=== PATIENT | female | born 1995 | race Caucasian/White ===

== ENCOUNTER 2019-03-10 04:47 | Day surgery (SDC) | payer OTHER ==
[2019-02-28 16:33] VITALS: BMI 26.7
[2019-03-10] MEDS ORDERED: LIDOCAINE HCL/PF 2% SDV 5ML VIAL ONE (14:37)
[2019-03-10] MEDS ORDERED: SUCCINYLCHOLINE CHLORIDE 200 MG/10 ML SYRINGE ONE (14:38)
[2019-03-10] MEDS ORDERED: PROPOFOL 20 ML ONE (14:38)
[2019-03-10] MEDS ORDERED: MIDAZOLAM HCL 2 MG/2 ML SINGLE DOSE VIAL ONE (14:38)
--- NOTE | 2019-03-10 14:38 | HP ---
History & Physical Update - History History: No Change - Physical Physical: No Change - Assessment Assessment: No Change - Plan Plan: No Change (Agree with H&P from 02/17/19, for laparoscopic left ovarian cystectomy for dermoid cyst)
[2019-03-10] MEDS ORDERED: ACETAMINOPHEN 325 MG TABLET (FP) PO PRN (14:43)
[2019-03-10] MEDS ORDERED: IBUPROFEN 800 MG/8 ML IJ IVPB PRN (14:43)
[2019-03-10] MEDS ORDERED: oxyCODONE HCL 5 MG TABLET PO PRN (14:44)
[2019-03-10] MEDS ORDERED: ONDANSETRON 4 MG/2 ML VIAL IVPUSH PRN (14:44)
[2019-03-10] MEDS ORDERED: LACTATED RINGERS SOLUTION 1,000 ML IV SCH (14:45)
[2019-03-10] MEDS ORDERED: DEXAMETHASONE SOD PHOSPHATE 4 MG/1 ML VIAL ONE (15:58)
[2019-03-10] MEDS ORDERED: KETOROLAC TROMETHAMINE 30 MG/1 ML VIAL ONE (16:31)
[2019-03-10] MEDS ORDERED: DESFLURANE GAS 240 ML BOTTLE IH ONE (16:39)
[2019-03-10] MEDS ORDERED: HYDROmorphone HCl 2 MG/ML VIAL ONE (16:54)
[2019-03-10] MEDS ORDERED: HYDROmorphone *PCA* 10MG/50ML DISP.SYRIN PCA ONE (17:45)
[2019-03-10] MEDS ORDERED: HYDROmorphone *PCA* 10MG/50ML DISP.SYRIN ONE (17:50)
--- NOTE | 2019-03-10 17:51 | OP ---
Operative Note - Note: Operative Date: 03/10/19 ([id number]) Pre-Operative Diagnosis: left ovarian dermoid cyst Operation: laparoscopic left ovarian cystectomy Findings: large left ovarian dermoid cyst Post-Operative Diagnosis: Same as Pre-op Surgeon: Roxi Smith Coding Auditor: June Dugan Anesthesiologist/FUEL OIL TRUCK DRIVER: Tian Corona Anesthesia: General Specimens Removed: left ovarian cyst Estimated Blood Loss (mls): 10 (small retroperitoneal hematoma noted not expanding after case) Operative Report Dictated: Yes
[2019-03-10] MEDS ORDERED: ACETAMINOPHEN 1000 MG/100 ML VIAL (NON FORMULARY) IVPB PRN (17:53)
[2019-03-10] MEDS ORDERED: HYDROmorphone *PCA* 10MG/50ML DISP.SYRIN PCA SCH (18:00)
--- NOTE | 2019-03-10 18:00 | SURG ---
Surgery Chest Painting And Sealing Supervisor Note Chest Painting And Sealing Supervisor: June Dugan PA-C (Suzy) Date of Service: 03/10/19 Diagnosis: left ovarian dermoid cyst Procedure: laparoscopic left ovarian cystectomy I was present for the entirety of the operative procedure. For further detail, please refer to operative report.
[2019-03-10] MEDS ORDERED: ONDANSETRON 4 MG/2 ML VIAL ONE ×2 (18:14→20:16)
[2019-03-10] MEDS ORDERED: ONDANSETRON 4 MG/2 ML VIAL IVPUSH ONE ×2 (18:15→19:45)
[2019-03-10] MEDS ORDERED: ACETAMINOPHEN 1000 MG/100 ML VIAL (NON FORMULARY) IVPB ONE (18:15)
[2019-03-10 18:36] LABS: BASO % 0.2 % (0-2.0); EOS % 0.2 % (0-4.5); HEMATOCRIT 34.5 % (32.4-45.2); HEMOGLOBIN 11.6 GM/dL (10.7-15.3); LYMPH % 13.2 % (8-40); MCH 29.7 pg (25.7-33.7); MCHC 33.7 g/dl (32.0-36.0); MEAN CELL VOLUME 88.2 fl (80-96); MEAN PLT VOLUME 8.8 fl (7.5-11.1); MONO % 3.1 % (3.8-10.2); NEUT % 83.3 % (42.8-82.8); PLATELET COUNT 126 K/MM3 (134-434); RBC 3.92 M/mm3 (3.60-5.2); RDW 13.9 % (11.6-15.6); WHITE BLOOD COUNT 6.9 K/mm3 (4.0-10.0)
[2019-03-10] MEDS ORDERED: PROMETHAZINE HCL 25 MG/1 ML VIAL IVPUSH ONE (20:00)
[2019-03-10] MEDS ORDERED: SODIUM CHLORIDE 500 ML IV STA (20:12)
[2019-03-10] MEDS ORDERED: PROMETHAZINE HCL 25 MG/1 ML VIAL ONE (20:28)
--- NOTE | 2019-03-10 20:35 | OP ---
DATE OF OPERATION: 03/10/2019 PREOPERATIVE DIAGNOSIS: Left ovarian dermoid cyst. POSTOPERATIVE DIAGNOSIS: Left ovarian dermoid cyst. PROCEDURE: Laparoscopic left ovarian cystectomy. SURGEON: Roxi Smith DO ANESTHESIA: General by PAPO Nguyen. SAMPLING THEORY TEACHER: NADEEM Taveras COMPLICATIONS: A retroperitoneal hematoma which was noted during the middle portion of the procedure. After several minutes of observation, did not appear to be expanding, required intraoperative consult with Vascular Surgery. ESTIMATED BLOOD LOSS: 10 mL. URINE OUTPUT: 200 mL. COUNT: Sponge, needle, and instrument count correct. DISPOSITION: Stable to PACU. BRIEF HISTORY AND PROCEDURE: Patient is a 23-year-old female who had a left ovarian dermoid cyst, who was admitted to [facility] on March 10, 2019, for laparoscopic removal. The patient signed the consents for the procedure prior to admission and reconfirmed upon admission. She was then taken back to the operating room, given general anesthesia, and placed in the dorsal lithotomy position. A 5-mm incision was created in the umbilicus, and a Veress needle was placed intra-abdominally. Abdomen was insufflated with CO2 gas. Next, a 5-mm trocar was placed, and using the optical trocar device, upon entry, it appeared that the trocar had been inserted briskly, and there was concern for trauma right below the trocar insertion site. The camera was inserted into the abdominal cavity, and a small area of peritoneal superficial tear was appreciated. No entrance into the retroperitoneal cavity was noted. The peritoneum appeared to just be denuded slightly at that site. We proceeded with the intended surgery at this time. The left ovary was identified, elevated, and an incision was made on the ovarian stroma. The ovarian cyst was identified and dissected away from the ovarian stroma bluntly. The ovarian cyst tissue was placed in the posterior cul-de-sac. The left ovary was suctioned and irrigated. An Endo Catch bag was placed inside the abdomen to retrieve the left ovarian cyst contents. Copious suction and irrigation of the abdomen and pelvis was completed. After the surgery was completed, this took approximately 20-25 minutes, attention was then turned to that same site below the initial trocar placement, and it appeared that a retroperitoneal hematoma had formed. General Surgery as well as Vascular Surgery was called in to evaluate the case, and the hematoma appeared to be stable. After reducing the intraperitoneal pressure and watching the hematoma, the hematoma was palpated gently and appeared soft. It did not appear to be expanding after approximately 20 minutes of watching. At this point, the right lower quadrant port was closed with a Shaggy-Shavonne device as it was an 11-mm port. The remaining trocars were removed under direct visualization. The abdomen was desufflated. The skin was reapproximated with 4-0 Biosyn and Dermabond skin glue. The patient was awoken from anesthesia in stable condition and recovering in the PACU in stable condition at the time of this dictation. ROXI SMITH DO /[id number]
[2019-03-11 04:40] LABS: BASO % 0.1 % (0-2.0); EOS % 0.1 % (0-4.5); HEMATOCRIT 31.6 % (32.4-45.2); HEMOGLOBIN 10.7 GM/dL (10.7-15.3); LYMPH % 22.1 % (8-40); MCH 29.8 pg (25.7-33.7); MCHC 33.8 g/dl (32.0-36.0); MEAN CELL VOLUME 88.2 fl (80-96); MEAN PLT VOLUME 8.7 fl (7.5-11.1); MONO % 7.9 % (3.8-10.2); NEUT % 69.8 % (42.8-82.8); PLATELET COUNT 131 K/MM3 (134-434); RBC 3.58 M/mm3 (3.60-5.2); RDW 13.7 % (11.6-15.6); WHITE BLOOD COUNT 3.2 K/mm3 (4.0-10.0)
[2019-03-11 05:20] LABS: BLOOD UREA NITROGEN 6.8 mg/dL (7-18); CALCIUM 7.9 mg/dL (8.5-10.1); CREATININE 0.6 mg/dL (0.55-1.3); POTASSIUM 4.3 mmol/L (3.5-5.1)
[2019-03-11 07:13] LABS: BASO % 0.2 % (0-2.0); EOS % 0.1 % (0-4.5); HEMATOCRIT 34.4 % (32.4-45.2); HEMOGLOBIN 11.7 GM/dL (10.7-15.3); LYMPH % 22.6 % (8-40); MCH 29.9 pg (25.7-33.7); MCHC 34.2 g/dl (32.0-36.0); MEAN CELL VOLUME 87.6 fl (80-96); MEAN PLT VOLUME 8.7 fl (7.5-11.1); MONO % 8.2 % (3.8-10.2); NEUT % 68.9 % (42.8-82.8); PLATELET COUNT 146 K/MM3 (134-434); RBC 3.92 M/mm3 (3.60-5.2); RDW 13.4 % (11.6-15.6); WHITE BLOOD COUNT 3.8 K/mm3 (4.0-10.0)
[2019-03-11 07:44] LABS: BLOOD UREA NITROGEN 5.2 mg/dL (7-18); CALCIUM 8.3 mg/dL (8.5-10.1); CREATININE 0.6 mg/dL (0.55-1.3); POTASSIUM 4.1 mmol/L (3.5-5.1)
--- NOTE | 2019-03-11 08:36 | PN ---
Progress Note (short form) - Note Progress Note: POD 1, s/p laparoscopic left ovarian cystectomy c/b retroperitoneal hematoma Pt seen and examined. Reports she is having some right lower quadrant pain, improved with the DRESSING MACHINE OPERATOR. Tolerating clears, jiang removed this AM. Has not been oob yet. Denies cp/sob, dizziness, palpitations. Vital Signs Temp 97.9 F 03/11/19 06:00 Pulse 74 03/11/19 06:00 Resp 20 03/11/19 06:00 BP 132/72 03/11/19 06:00 Pulse Ox 98 03/10/19 20:30 Intake & Output 03/10/19 03/10/19 03/11/19 11:59 23:59 11:59 Intake Total 3350 750 Output Total 570 2500 Balance 2780 -1750 Intake: IV 3250 750 Lactated Ringers Solution 250 750 1,000 ml @ 125 mls/hr IV ASDIR TIFFANY Rx#: [id number] Normal Saline - 500 ml @ 500 500 mls/hr IV ASDIR STA Rx#:[id number] Oral 100 Output: Urine 560 2500 Jiang 50 2500 Estimated Blood Loss 10 CBC, BMP 03/11/19 06:12 03/11/19 06:12 Gen: awake, alert, nad Resp: unlabored on ra Abdo: + ttp rlq, incisions c/d/i, hypoactive bowel sounds. Ext: Calves soft, nt A/P: 23 y/o F w/ recent diagnosis of L dermoid cyst, now POD 1, s/p s/p laparoscopic left ovarian cystectomy c/b retroperitoneal hematoma. Vitals stable overnight, h/h stable x2. Pain controlled with DRESSING MACHINE OPERATOR, overnight 27 demands. -Plan for repeat cbc at noon -DRESSING MACHINE OPERATOR d/c'ed, pain control with oxy 5/10mg q4hrs prn, ofirmev 1g q 6hrs prn -regular diet -Zofran for nausea as needed -OOB with assistance -TOV pending jiang removed at 6 am -Monitor VS per protocol -DVT prophylaxis with b/l scds -Plan for d/c later this afternoon pending cbc d/w attending Dr Smith
[2019-03-11] MEDS ORDERED: oxyCODONE HCL 5 MG TABLET PO PRN ×2 (08:39)
[2019-03-11] MEDS ORDERED: PATIENT'S OWN MEDICATION (NON-FORMULARY) (Norgestimate-Ethinyl Estradiol [Mono-Linyah 28 T PO SCH (10:00)
--- NOTE | 2019-03-11 12:02 | PN ---
Progress Note (short form) - Note Progress Note: Anesthesia postop note 23 y/o F s/p GA for lap ovarian cystectomy, DRAFTER for postop pain management POD#1, vss, aaox3, no complaints. Tolerating po fluids, will discontinue care taker. No anesthesia complications.
[2019-03-11] MEDS ORDERED: METOCLOPRAMIDE HCL INJECTION 10 MG/2 ML VIAL IVPUSH PRN (12:43)
[2019-03-11 13:14] LABS: BASO % 0.2 % (0-2.0); EOS % 0.3 % (0-4.5); HEMATOCRIT 32.2 % (32.4-45.2); LYMPH % 26.4 % (8-40); MCH 29.8 pg (25.7-33.7); MCHC 34.1 g/dl (32.0-36.0); MEAN CELL VOLUME 87.6 fl (80-96); MEAN PLT VOLUME 8.6 fl (7.5-11.1); MONO % 11.1 % (3.8-10.2); PLATELET COUNT 148 K/MM3 (134-434); RBC 3.67 M/mm3 (3.60-5.2); RDW 13.7 % (11.6-15.6); WHITE BLOOD COUNT 4.8 K/mm3 (4.0-10.0)
[2019-03-11 15:32] VITALS: BP 114/59; PULSE 87; TEMP 97.7
--- NOTE | 2019-03-11 22:01 | PN ---
Progress Note, Physician Chief Complaint: abdominal pain History of Present Illness: 23 y/o POD#1 s/p laparoscopic left ovarian cystectomy complicated by retroperitoneal hematoma due to traumatic trocar injury. Pt with serial CBCs overnight, stable, do not suspect expanding hematoma. VSS. no ecchymosis on back/flank/side. Pt feeling well overall. 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
--- NOTE | 2019-03-11 22:03 | DS ---
Physical Examination Vital Signs: Vital Signs Temperature 97.7 F 03/11/19 13:50 Pulse Rate 87 03/11/19 13:50 Respiratory Rate 18 03/11/19 13:50 Blood Pressure 114/59 L 03/11/19 13:50 O2 Sat by Pulse Oximetry (%) 98 03/10/19 20:30 Labs: CBC, BMP 03/11/19 12:36 03/11/19 06:12 Discharge Summary Reason For Visit: LEFT OVARIAN CYST Hospital Course: PT admitted for scheduled laparoscopic left ovarian cystectomy due to dermoid cyst. Procedure was completed on 03/10/19. During procedure pt had traumatic trocar insertion with development of retroperitoneal hematoma. Gen surg and vascular surgery consulted in surgery, planned for observation. Serial CBC's overnight and VSS stable. Pt was discharged home in stable condition on post op day 1. Condition: Good - Instructions Diet, Activity, Other Instructions: Physical activity Resume your normal everyday activity as tolerated but no heavy lifting or strenuous sexercise until seen by your surgeon. You may walk unlimited amounts and climb stairs. You may resume driving the car when you feel safe and comfortable behind the wheel. No sexual activity as instructed for 2 weeks. Wound care If you have stitches or glue on the skin, they will dissolve on their own. DO not attempt to remove the stitches/glue. You may shower daily. No soaking in tubs/baths/pools for 2 weeks as directed by your doctor. Diet There are no dietary restrictions. Eat healthy, high-fiber foods. Drink 6 to 8 glasses of liquid each day. This will assist in keeping your bowels regular. Pain management You may take Tylenol as needed for pain. Avoid NSAIDS (ibuprofen, Aleve, Motrin , etc) until otherwise instructed by your doctor. If you have been prescribed a narcotic pain medication, take as directed. Do not drive, drink alcohol, take any sedatives or illicit drugs, or operate heavy machinery while taking narcotic pain medications. We recommend increasing your fiber and fluid intake while taking narcotic pain medications as constipation is a common side effect. You may consider taking an over the counter stool softener as needed. Call Dr Smith for any of the following: Severe pain not relieved by medication Fever of 101 or higher Excessive bleeding or drainage on dressing Inability to urinate Call the office at [phone] for an appointment in 14 days. Disposition: HOME - Home Medications Comprehensive Discharge Medication List: Ambulatory Orders Norgestimate-Ethinyl Estradiol [[place]-Linyah] 1 each PO DAILY 02/28/19 Sulfamethoxazole/Trimethoprim [Sulfamethoxazole-Tmp Ds Tablet] 1 each PO BID 09/17 Docusate Sodium [Dulcolax Stool Softener] 100 mg PO BID 10 Days #20 capsule Ondansetron [Ondansetron Odt] 4 mg PO PRN PRN #20 tab.rapdis MDD 3 03/11/19 oxyCODONE HCL [Roxicodone -] 5 mg PO Q4H PRN 7 Days #15 tablet MDD 5 03/11/19
--- NOTE | 2019-03-12 16:04 | PATH ---
Surgical Pathology Report Patient Name: KATERINE CABALLERO [facility]. Rec. #: [id number] /Age/Gender: 1995 (Age: 23) / F Account: [id number] Location: [facility] Taken: 03/10/2019 Received: 03/11/2019 Reported: 03/12/2019 Physicians: Roxi Smith M.D. Specimen(s) Received LEFT OVARIAN CYST Clinical History Left ovarian cyst Final Diagnosis LEFT OVARIAN CYST, EXCISION: OVARIAN TISSUE WITH MATURE CYSTIC TERATOMA (DERMOID CYST). Electronically Signed Nicholas Jara M.D. Gross Description Received in formalin labeled "left ovarian cyst," is a 5.0 x 3.8 x 2.5 cm focally disrupted cyst. The outer surface is olmstead and smooth. The lumen contains abundant olmstead sebaceous material. There is a 1.5 cm in greatest dimension brown, polypoid lesion attached to the inner lining of the cyst. [employer] Professional sections are submitted in 5 cassettes with the polyp in cassettes 1-2. /03/11/2019 saudi/03/11/2019
== END 2019-03-11 16:17 | disposition home or self-care (01) ==
LOC: JASU-SURG 04:47 → J8W 21:17 → JASU-SURG 03-11 16:17
PROVIDERS: ATTEND Obstetrics & Gynecology
PROC: 0UB14ZZ Excision of Left Ovary, Percutaneous Endoscopic Approach (ICD-10-PCS; principal; 2019-03-10 14:00)
DX: D27.1 Benign neoplasm of left ovary (principal)
CPT/HCPCS: 36415; 80048; 84703; 85025; 86850; 86900; 86901; 88307-TC; 94760; J0131

== ENCOUNTER 2019-03-15 22:28 | Inpatient (IN) | payer OTHER ==
--- NOTE | 2019-03-15 23:37 | PDOC ---
Documentation entered by Scarlett Francis SCRIBE, acting as scribe for Esperanza Shi MD. Esperanza Shi MD: This documentation has been prepared by the Penny alexandra Nirvannie, SCRIBE, under my direction and personally reviewed by me in its entirety. I confirm that the documentation accurately reflects all work, treatment, procedures, and medical decision making performed by me. History of Present Illness - General Chief Complaint: Pain Stated Complaint: PT TRANSFERRED/ABDOMINAL PAIN Time Seen by Provider: 03/15/19 22:39 History Source: Patient Exam Limitations: No Limitations - History of Present Illness Initial Comments: 03/15/19 23:50 The patient is a 23 year old female, with a significant past medical history of recent laparoscopic left ovarian cystectomy, who presents to the emergency department via EMS from [facility] with, abdominal pain. As per patient, she was discharged from [facility] 03/11 after her surgery but, notes new onset pain today. She endorses going to [facility] for her symptoms at which time she was treated with Dilaudid and transferred to [facility]. She denies any abnormal vaginal bleeding. Allergies: Sulfamethoxazole SECTION HAND HELPER: Dr. Smith Past History - Past Medical History Allergies/Adverse Reactions: Allergies Allergy/AdvReac Type Severity Reaction Status Date / Time sulfamethoxazole AdvReac "skin rash" Verified 03/15/19 22:46 Home Medications: Ambulatory Orders Norgestimate-Ethinyl Estradiol [Refugio-Linyah] 1 each PO DAILY 02/28/19 oxyCODONE HCL [Roxicodone -] 5 mg PO Q4H PRN 7 Days #15 tablet MDD 5 03/11/19 COPD: Yes Psychiatric Problems: Yes (ANXIETY AND DEPRESSION) - Surgical History Abdominal Surgery: Yes - Suicide/Smoking/Psychosocial Hx Smoking History: Never smoked Have you smoked in the past 12 months: No Number of Cigarettes Smoked Daily: 10 If you are a former smoker, when did you quit?: 2017 Information on smoking cessation initiated: No 'Breaking Loose' booklet given: 07/26/15 Hx Alcohol Use: No Drug/Substance Use Hx: No Substance Use Type: Alcohol, Marijuana Hx Substance Use Treatment: No Review of Systems - Review of Systems Able to Perform ROS?: Yes Comments:: 03/15/19 23:50 GENERAL/CONSTITUTIONAL: No fever or chills. No weakness. HEAD, EYES, EARS, NOSE AND THROAT: No change in vision. No ear pain or discharge. No sore throat. CARDIOVASCULAR: No chest pain or shortness of breath. RESPIRATORY: No cough, wheezing, or hemoptysis. GASTROINTESTINAL: No nausea, vomiting, diarrhea or constipation. GENITOURINARY: +Pelvic pain. No dysuria, frequency, or change in urination. MUSCULOSKELETAL: No joint or muscle swelling or pain. No neck or back pain. SKIN: No rash NEUROLOGIC: No headache, vertigo, loss of consciousness, or change in strength/ sensation. ENDOCRINE: No increased thirst. No abnormal weight change. HEMATOLOGIC/LYMPHATIC: No anemia, easy bleeding, or history of blood clots. ALLERGIC/IMMUNOLOGIC: No hives or skin allergy. All Other Systems: Reviewed and Negative *Physical Exam - Vital Signs Last Vital Signs Temp Pulse Resp BP Pulse Ox 98.8 F 95 H 16 106/73 100 03/15/19 22:35 03/15/19 22:35 03/15/19 22:35 03/15/19 22:35 03/15/19 22:35 - Physical Exam Comments: 03/15/19 23:51 GENERAL: Awake, alert, and fully oriented, in no acute distress HEAD: No signs of trauma EYES: PERRLA, EOMI, sclera anicteric, conjunctiva clear ENT: Auricles normal inspection, hearing grossly normal, nares patent, oropharynx clear without exudates. Moist mucosa NECK: Normal ROM, supple, no lymphadenopathy, JVD, or masses LUNGS: Breath sounds equal, clear to auscultation bilaterally. No wheezes, and no crackles HEART: Regular rate and rhythm, normal S1 and S2, no murmurs, rubs or gallops ABDOMEN: +Mild abdominal guarding. Soft, nontender, normoactive bowel sounds. No rebound. No masses BACK: +Mild back pain with movement. EXTREMITIES: Normal range of motion, no edema. No clubbing or cyanosis. No cords, erythema, or tenderness NEUROLOGICAL: Cranial nerves II through XII grossly intact. Normal speech SKIN: Warm, Dry, normal turgor, no rashes or lesions noted. Heart Score/ECG Review - ECG Intrepretation Rhythm: Regular Rhythm - [place]: Normal - QRS Poor R Wave Progression: No Q Wave Present: No - ST and T Early Repolarization: No Non Specific ST-T Wave changes: No - ECG Impressions Normal ECG: Yes Non-specific ST Elevation: No Ischemic Changes: No Bradycardia: No ED Treatment Course - LABORATORY CBC & Chemistry Diagram: 03/15/19 23:45 03/15/19 23:45 - RADIOLOGY Radiology Studies Ordered: Category Date Time Status CHEST PA & LAT [RAD] Stat Radiology 03/15/19 22:39 Ordered *DC/Admit/Observation/Transfer Diagnosis at time of Disposition: Abdominal pain, Post-op pain - Discharge Dispostion Condition at time of disposition: Guarded Decision to Admit order: Yes - Referrals - Patient Instructions - Post Discharge Activity
[2019-03-15 23:55] LABS: BASO % 0.4 % (0-2.0); HEMATOCRIT 32.6 % (32.4-45.2); HEMOGLOBIN 10.8 GM/dL (10.7-15.3); MCH 29.5 pg (25.7-33.7); MCHC 33.1 g/dl (32.0-36.0); MEAN CELL VOLUME 89.1 fl (80-96); MEAN PLT VOLUME 7.3 fl (7.5-11.1); MONO % 11.5 % (3.8-10.2); NEUT % 76.1 % (42.8-82.8); PLATELET COUNT 279 K/MM3 (134-434); RBC 3.66 M/mm3 (3.60-5.2); RDW 13.6 % (11.6-15.6); WHITE BLOOD COUNT 10.3 K/mm3 (4.0-10.0)
[2019-03-16 00:20] LABS: ALBUMIN 2.8 g/dl (3.4-5.0); BILIRUBIN,TOTAL 0.6 mg/dL (0.2-1); BLOOD UREA NITROGEN 6.7 mg/dL (7-18); CREATININE 0.6 mg/dL (0.55-1.3); POTASSIUM 3.8 mmol/L (3.5-5.1)
[2019-03-16] MEDS ORDERED: ACETAMINOPHEN 1000 MG/100 ML VIAL (NON FORMULARY) IVPB ONE (01:38)
[2019-03-16] MEDS ORDERED: ACETAMINOPHEN INJECTION 100 ML IVPB ONE (01:42)
[2019-03-16 03:46] VITALS: BMI 26.8
--- NOTE | 2019-03-16 07:14 | PN ---
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 As per patient, she was discharged from [facility] 03/11 after her surgery but, notes new onset pain today. She endorses going to [facility] for her symptoms at which time she was treated with Dilaudid and transferred to [facility]. She denies any abnormal vaginal bleeding. I came to see patient, she's lying in position in bed. She admits to surgery on 03/10/19 and pain started on 03/14/19. Her vitals are stable. She denies any nausea nor vomiting; she does feel hungry. She was since seen at [facility] where a cat scan was done ( report pending ). - Objective Vital Signs: Vital Signs Temperature 98.7 F 03/16/19 03:26 Pulse Rate 91 H 03/16/19 03:26 Respiratory Rate 18 03/16/19 03:26 Blood Pressure 121/64 03/16/19 03:26 O2 Sat by Pulse Oximetry (%) 98 03/16/19 03:26 Constitutional: Yes: Moderate Distress Eyes: Yes: Conjunctiva Clear HENT: Yes: Atraumatic Neck: Yes: Supple, Trachea Midline Cardiovascular: Yes: Regular Rate and Rhythm Respiratory: No: SOB, Tachypnea Gastrointestinal: Yes: Tenderness. No: Vomiting Genitourinary: Yes: CVA Tenderness - Left, CVA Tenderness - Right. No: Vaginal Bleeding Breast(s): Yes: WNL Musculoskeletal: Yes: Back Pain Extremities: Yes: WNL Wound/Incision: Yes: Other (Healing) Neurological: Yes: Alert, Oriented ...Motor Strength: WNL Psychiatric: Yes: Alert, Oriented Labs: CBC, BMP 03/15/19 23:45 03/15/19 23:45 Assessment/Plan Status post Laparoscopic left ovarian cystectomy ( Dr. Smith ) Abdominal pain Back pain R/O Pyelonephritis R/O Kidney stone Analgesia Ancef Regular diet trial Continue observation
[2019-03-16] MEDS: DEXTROSE 5%-LACTATED RINGERS 1,000 ML IV SCH ×2 (07:47→16:45)
[2019-03-16] MEDS: HYDROmorphone HCl 2 MG/ML VIAL IVPB PRN ×3 (07:51→23:18)
[2019-03-16] MEDS ORDERED: CEFAZOLIN 1 GM/D5W 1 GM/50 ML BAG IVPB SCH (10:00)
[2019-03-16] MEDS ORDERED: PT OWN MED DRAWER 7, Y5N ONE (10:39)
[2019-03-16] MEDS: DOCUSATE SODIUM 100 MG CAPSULE (FP) PO PRN (10:44)
[2019-03-16] MEDS ORDERED: ONDANSETRON 4 MG/2 ML VIAL IVPUSH PRN (11:10)
--- NOTE | 2019-03-16 11:32 | EKG ---
Test Reason : Blood Pressure : / mmHG Vent. Rate : 098 BPM Atrial Rate : 098 BPM P-R Int : 160 ms QRS Dur : 090 ms QT Int : 328 ms P-R-T Axes : 018 050 027 degrees QTc Int : 418 ms NORMAL SINUS RHYTHM NORMAL ECG NO PREVIOUS ECGS AVAILABLE Confirmed by GOMEZ KEARNEY MD ([id number]) on 03/16/2019 11:32:14 AM Referred By: Confirmed By:GOMEZ KEARNEY MD
[2019-03-16] MEDS ORDERED: DEXTROSE 5%-WATER - 50 ML IVPB ONE ×2 (11:34→16:13)
[2019-03-16] MEDS ORDERED: ceFAZolin SODIUM 1 GM VIAL ONE ×2 (11:34→16:13)
[2019-03-16] MEDS: CEFAZOLIN 1 GM in DEXTROSE 5%-WATER - 50 ML IVPB SCH ×2 (11:38→17:09)
[2019-03-16 13:55] LABS: PH,URINE 6.5 (5.0-8.0); URINE APPEARANCE Clear; URINE BILIRUBIN Negative (NEGATIVE); URINE COLOR Yellow; URINE GLUCOSE (UA) Negative (NEGATIVE); URINE KETONE 1+ (NEGATIVE); URINE LEUK ESTERASE Negative (NEGATIVE); URINE NITRITE Negative (NEGATIVE); URINE PROTEIN Negative (NEGATIVE)
[2019-03-16] MEDS ORDERED: ONDANSETRON 4 MG/2 ML VIAL ONE (16:44)
[2019-03-16] MEDS: ONDANSETRON 4 MG/2 ML VIAL IVPUSH PRN ×2 (16:45→16:50)
[2019-03-17] MEDS: ONDANSETRON 4 MG/2 ML VIAL IVPUSH PRN (00:45)
[2019-03-17] MEDS ORDERED: DEXTROSE 5%-WATER - 50 ML IVPB ONE ×3 (01:17→16:30)
[2019-03-17] MEDS ORDERED: ceFAZolin SODIUM 1 GM VIAL ONE ×3 (01:17→16:30)
[2019-03-17] MEDS: CEFAZOLIN 1 GM in DEXTROSE 5%-WATER - 50 ML IVPB SCH ×3 (01:31→17:24)
--- NOTE | 2019-03-17 08:19 | PN ---
Progress Note (short form) - Note Progress Note: The patient is a 23 year old female, with a significant past medical history of recent laparoscopic left ovarian cystectomy, who presents to the emergency department via EMS from [facility] with, abdominal pain. As per patient, she was discharged from [facility] 03/11 after her surgery but, notes new onset pain today. She endorses going to [facility] for her symptoms at which time she was treated with Dilaudid and transferred to [facility]. She denies any abnormal vaginal bleeding. Patient seen and evaluated, she continues to c/o abdominal and pelvic pain. She did sleep last night after pain medication. She's on Zofran fro vomiting. Cat scan report in chart and was reviewed. A / P : Status post left laparoscopic cystectomy Post op abdominal pain R/O Appendicitis Surgery consult
[2019-03-17 08:23] LABS: BASO % 0.4 % (0-2.0); EOS % 0.2 % (0-4.5); HEMATOCRIT 29.4 % (32.4-45.2); HEMOGLOBIN 10.1 GM/dL (10.7-15.3); LYMPH % 21.3 % (8-40); MCH 30.4 pg (25.7-33.7); MCHC 34.4 g/dl (32.0-36.0); MEAN CELL VOLUME 88.5 fl (80-96); MEAN PLT VOLUME 7.4 fl (7.5-11.1); MONO % 17.8 % (3.8-10.2); NEUT % 60.3 % (42.8-82.8); PLATELET COUNT 329 K/MM3 (134-434); RBC 3.33 M/mm3 (3.60-5.2); RDW 13.5 % (11.6-15.6); WHITE BLOOD COUNT 6.1 K/mm3 (4.0-10.0)
[2019-03-17 08:37] LABS: BLOOD UREA NITROGEN 4.7 mg/dL (7-18); CALCIUM 8.4 mg/dL (8.5-10.1); CREATININE 0.6 mg/dL (0.55-1.3); POTASSIUM 4.1 mmol/L (3.5-5.1)
--- NOTE | 2019-03-17 09:18 | CONSULT ---
Consult Consult Specialty:: General Surgery Reason for Consultation:: retropreitoneal hematoma - History of Present Illness Chief Complaint: worsening postop abdominal pain History of Present Illness: 23 yo female no reported significant PMH POD#7 s/p laparoscopic left ovarian cystectomy, presented to the emergency department via EMS from [facility] with, worsening abdominal pain after a period of less pain. As per patient, she was discharged from [facility] 03/11 after her surgery but, notes new onset of severe pain 03/16. She endorses going to [facility] for her symptoms at which time she was treated with Dilaudid and transferred to [facility]. CT scan showed retroperitonaeal fluid collection extenet right pararenal to presacreal space. She denies any abnormal vaginal bleeding. indication for cystectomy was dermoid cyst. She has been on oxycodone for pain. last BM reported 03/16, passing flatus. Reports nausea and multiple episodes of vomiting and meal intolerence. this evening pain has improved and she feels hungry. - History Source History Provided By: Patient, Medical Record, Transfer Record Limitations to Obtaining History: No Limitations - Past Medical History ...LMP: 02/19/19 - Past Surgical History Additional Surgical History: ovarina cystectomy - Alcohol/Substance Use Hx Alcohol Use: No History of Substance Use: reports: Prescription (oxycodone ) - Smoking History Smoking history: Never smoked Have you smoked in the past 12 months: No Aproximately how many cigarettes per day: 10 If you are a former smoker, when did you quit?: 2017 - Social History Place of : [facility] History of Recent Travel: Yes Home Medications - Allergies Allergies/Adverse Reactions: Allergies Allergy/AdvReac Type Severity Reaction Status Date / Time sulfamethoxazole AdvReac "skin rash" Verified 03/15/19 22:46 - Home Medications Home Medications: Ambulatory Orders Norgestimate-Ethinyl Estradiol [[place]-Linyah] 1 each PO DAILY 02/28/19 oxyCODONE HCL [Roxicodone -] 5 mg PO Q4H PRN 7 Days #15 tablet MDD 5 03/11/19 Review of Systems - Review of Systems Constitutional: denies: Chills, Fever Eyes: denies: Blind Spots, Recent Change in Vision HENT: denies: Difficult Swallowing, Throat Pain Neck: denies: Decreased ROM, Tenderness Cardiovascular: denies: Chest Pain, Edema Respiratory: denies: Cough, SOB Gastrointestinal: denies: Constipation Genitourinary: denies: Discharge Breasts: reports: No Symptoms Reported. denies: Pain Musculoskeletal: reports: Back Pain. denies: Joint Swelling Integumentary: denies: Lesions, Lump, Pallor Neurological: denies: Seizure, Syncope Endocrine: denies: Unexplained Weight Gain, Unexplained Weight Loss Hematology/Lymphatic: denies: Easily Bruised, Excessive Bleeding Psychiatric: denies: Anxiety, Depression Physical Exam Vital Signs: Vital Signs Temperature 98.2 F 03/17/19 07:54 Pulse Rate 76 03/17/19 07:54 Respiratory Rate 14 03/17/19 07:54 Blood Pressure 110/60 03/17/19 07:54 O2 Sat by Pulse Oximetry (%) 99 03/16/19 21:00 Vital Signs Period Temp Pulse Resp BP Sys/Sullivan Pulse Ox Last 24 Hr 97.4 F-98.5 F 59-83 14-20 101-141/50-60 99 Constitutional: Yes: Well Nourished, No Distress, Calm Eyes: Yes: Conjunctiva Clear, EOM Intact HENT: Yes: Atraumatic, Normocephalic Neck: Yes: Supple, Trachea Midline Cardiovascular: Yes: Regular Rate and Rhythm, S1, S2 Respiratory: Yes: Regular, CTA Bilaterally Gastrointestinal: Yes: Normal Bowel Sounds, Soft, Tenderness (RLQ and right lateral abdomen), Tenderness, Rebound. No: Tenderness, Epigastrium ...Rectal Exam: Yes: Deferred Renal/: No: CVA Tenderness - Left, CVA Tenderness - Right Musculoskeletal: No: Muscle Pain, Muscle Weakness Extremities: No: Cool, Cyanosis Edema: No Peripheral Pulses WNL: Yes Integumentary: No: Bruising, Erythema, Incision Wound/Incision: Yes: Clean/Dry, Well Approximated. No: Draining, Reddened, Bleeding Neurological: Yes: Alert, Oriented Psychiatric: Yes: Alert, Oriented Labs: CBC, BMP 03/17/19 07:30 03/17/19 07:30 Imaging - Results Chest X-ray: Report Reviewed, Image Reviewed X-ray: Report Reviewed, Image Reviewed Cat Scan: Report Reviewed, Other ([facility], no images available for review) Problem List - Problems (1) Retroperitoneal hematoma Assessment/Plan: 23yo female with worsening right lateral abdominal pain s/p laparoscopic left ovarian cyatetctomy 03/10, Imaging 03/15 [facility] indicated that she has a retroperitoneal injury with hematoma and inflamatory changes extending : presacral to right parareanal area. This does not appear to be rapidly expanding based on labs but is symptomatic and has potential for retroperitonal abscess formation. She is also constipated, last BM reported 1 week ago. No acute general surgery intervention is indicated. 1. Strict NPO and IVF hydration 2. trend labs 3. Conisder repelating a CTA of the abdomen and pelvis 4. ID consult for empiric IV antibiotics (skin luis f potentially introduced in to sterile retroperitoneum space) 4. IR evaluation, if on going bleeding is identified 5. Vascular surgery evaluation, if on lia, bleeding is identified 6. Recall as needed. Thank you for the opportunity to participate in the care of this patient. Code(s): K66.1 - HEMOPERITONEUM (2) Right lateral abdominal pain Code(s): R10.9 - UNSPECIFIED ABDOMINAL PAIN (3) Abdominal pain Code(s): R10.9 - UNSPECIFIED ABDOMINAL PAIN Qualifiers: Abdominal location: generalized Qualified Code(s): R10.84 - Generalized abdominal pain (4) Mature cystic teratoma Code(s): D36.9 - BENIGN NEOPLASM, UNSPECIFIED SITE (5) Constipation due to opioid therapy Code(s): K59.03 - DRUG INDUCED CONSTIPATION; T40.2X5A - ADVERSE EFFECT OF OTHER OPIOIDS, INITIAL ENCOUNTER
[2019-03-17] MEDS ORDERED: ACETAMINOPHEN 1000 MG/100 ML VIAL (NON FORMULARY) IVPB PRN (09:21)
--- NOTE | 2019-03-17 09:28 | HP ---
Admitting History and Physical - Admission Chief Complaint: abdominal and back pain s/p laparoscopic left ovarian cystectomy 03/10/19 History of Present Illness: Taking over care of patient from manufacturing storeperson doctor Dr. Clinton who saw pt over the weekend. 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 The patient's surgery on 03/10/19 was complicated by a retroperitoneal hematoma noted at time of surgery. General surgery and vascular surgery were notified and came for intra-op consult. The recommendation was to observe. The patient was kept overnight 03/10/19, serial CBCs were trended and stable. On POD#1 the patient was discharged home with oral medications as her pain was well controlled. She states the remainder of the week was normal, she was eating/drinking normally. Pain was "ok" Sunday through Sunday, and then she was awoken out of her sleep around 2am Sunday with severe abdominal/back pain at which point she called the office and was instructed to go to the ED. A CT scan at [facility] confirmed retroperitoneal hematoma without any active extravasation and Hgb was stable from discharge Hgb on 03/11. The patient was transferred to [facility] and admitted for pain control. Hgb upon admission was 10.8. Pt also admits that she hasn't had a BM since 03/09/19. History Source: Patient, Medical Record Limitations to Obtaining History: No Limitations - Past Medical History Cardiovascular: No: AFIB, HTN, SD Pulmonary: No: Asthma, COPD Gastrointestinal: No: GERD Hepatobiliary: No: Hepatitis B, Hepatitis C Renal/: Yes: UTI (recent admission for pyelonephritis at another institution in January) Reproductive: No: Endometriosis, Fibroids, PID ...LMP: 02/19/19 Heme/Onc: No: Anemia Infectious Disease: No: STD's Psych: Yes: Anxiety, Bipolar - Past Surgical History Additional Past Surgical History: laparoscopic left ovarian cystectomy - Smoking History Smoking history: Never smoked Have you smoked in the past 12 months: No Aproximately how many cigarettes per day: 10 If you are a former smoker, when did you quit?: 2017 - Alcohol/Substance Use Hx Alcohol Use: No - Social History Usual Living Arrangement: Yes: With Parent (Grandmother) ADL: Independent History of Recent Travel: No Home Medications - Allergies Allergies/Adverse Reactions: Allergies Allergy/AdvReac Type Severity Reaction Status Date / Time sulfamethoxazole AdvReac "skin rash" Verified 03/15/19 22:46 - Home Medications Home Medications: Ambulatory Orders Norgestimate-Ethinyl Estradiol [[place]-Linyah] 1 each PO DAILY 02/28/19 oxyCODONE HCL [Roxicodone -] 5 mg PO Q4H PRN 7 Days #15 tablet MDD 5 03/11/19 Review of Systems - Review of Systems Constitutional: denies: Chills, Fever Eyes: reports: No Symptoms HENT: reports: No Symptoms Neck: reports: No Symptoms Cardiovascular: denies: Chest Pain, Palpitations, Shortness of Breath Gastrointestinal: reports: Constipation, Vomiting (pt states no vomiting at home , only since admission to hospital) Genitourinary: reports: Flank Pain. denies: Vaginal Bleeding Breasts: reports: No Symptoms Reported Psychiatric: reports: No Symptoms Physical Examination Vital Signs: Vital Signs Temperature 98.2 F 03/17/19 07:54 Pulse Rate 76 03/17/19 07:54 Respiratory Rate 14 03/17/19 07:54 Blood Pressure 110/60 03/17/19 07:54 O2 Sat by Pulse Oximetry (%) 99 03/16/19 21:00 Constitutional: Yes: Well Nourished, Calm HENT: Yes: Atraumatic Cardiovascular: Yes: Regular Rate and Rhythm Respiratory: Yes: Regular Gastrointestinal: Yes: Normal Bowel Sounds, Soft, Tenderness (appropriate post surgical tenderness anteriorly) Edema: No Integumentary: Yes: Other (no apprent ecchymosis on flanks/back). No: Bruising Wound/Incision: Yes: Clean/Dry, Well Approximated, Sutures Intact Neurological: Yes: Alert, Oriented Psychiatric: Yes: Alert, Oriented Labs: CBC, BMP 03/17/19 07:30 03/17/19 07:30 Imaging - Results Cat Scan: Report Reviewed (from [facility] - confirmed retroperitoneal hematoma) Problem List - Problems (1) Abdominal pain Code(s): R10.9 - UNSPECIFIED ABDOMINAL PAIN (2) Post-op pain Code(s): G89.18 - OTHER ACUTE POSTPROCEDURAL PAIN (3) Retroperitoneal hematoma Code(s): K66.1 - HEMOPERITONEUM Assessment/Plan 23 y/o POD#7 s/p laparoscopic left ovarian cystectomy complicated by retroperitoneal hematoma readmitted with worsening abdominal/back pain and constipation AFebrile VSS Was tachycardic upon admission, as resolved Hgb 10.8 upon admission, to trend CBCs Will add in Ofirmev for pain control to try to reduce narcotics in hopes to help with bowel function hold NSAIDs general surgery consulted - appreciate input close observation SCDs for VTE Ppx -avoid anticoagulants
[2019-03-17] MEDS: HYDROmorphone HCl 2 MG/ML VIAL IVPB PRN ×2 (10:55→21:29)
[2019-03-17] MEDS: DEXTROSE 5%-LACTATED RINGERS 1,000 ML IV SCH ×2 (10:58→21:28)
[2019-03-17] MEDS ORDERED: BISACODYL 10 MG SUPP.RECT PR PRN (23:30)
[2019-03-18] MEDS ORDERED: ceFAZolin SODIUM 1 GM VIAL ONE ×2 (01:15→09:54)
[2019-03-18] MEDS ORDERED: DEXTROSE 5%-WATER - 50 ML IVPB ONE ×2 (01:15→09:54)
[2019-03-18] MEDS: CEFAZOLIN 1 GM in DEXTROSE 5%-WATER - 50 ML IVPB SCH ×2 (02:15→09:57)
[2019-03-18] MEDS: DEXTROSE 5%-LACTATED RINGERS 1,000 ML IV SCH ×2 (06:12→15:07)
[2019-03-18 08:57] LABS: BASO % 0.6 % (0-2.0); EOS % 0.2 % (0-4.5); HEMATOCRIT 34.9 % (32.4-45.2); HEMOGLOBIN 11.8 GM/dL (10.7-15.3); LYMPH % 38.3 % (8-40); MCH 29.8 pg (25.7-33.7); MCHC 33.8 g/dl (32.0-36.0); MEAN PLT VOLUME 7.6 fl (7.5-11.1); MONO % 15.2 % (3.8-10.2); NEUT % 45.7 % (42.8-82.8); PLATELET COUNT 435 K/MM3 (134-434); RBC 3.96 M/mm3 (3.60-5.2); RDW 13.2 % (11.6-15.6); WHITE BLOOD COUNT 4.3 K/mm3 (4.0-10.0)
--- NOTE | 2019-03-18 08:57 | PN ---
Progress Note, Physician Chief Complaint: Pt seen/evaluated and doing well. Only received 1 dose IV pain meds overnight, able to sleep. Still no BM. No n/v. No other complaints. - Current Medication List Current Medications: Active Medications Acetaminophen (Ofirmev Injection -) 1,000 mg IVPB Q6H PRN PRN Reason: PAIN LEVEL 6-10 Bisacodyl (Dulcolax Suppository -) 10 mg NM DAILY PRN PRN Reason: CONSTIPATION Docusate Sodium (Colace -) 100 mg PO Q8H PRN PRN Reason: CONSTIPATION Last Admin: 03/16/19 10:44 Dose: 100 mg Hydromorphone HCl (Dilaudid Vial -) 2 mg IVPB Q4H PRN PRN Reason: PAIN LEVEL 7 - 10 Last Admin: 03/17/19 21:29 Dose: 2 mg Dextrose/Lactated Ringer's (D5-Lr -) 1,000 mls @ 125 mls/hr IV ASDIR TIFFANY Last Admin: 03/18/19 06:12 Dose: 125 mls/hr Cefazolin Sodium 1 gm/ (Dextrose) 50 mls @ 100 mls/hr IVPB Q8H-IV TIFFANY Last Admin: 03/18/19 02:15 Dose: 100 mls/hr Ondansetron HCl (Zofran Injection) 4 mg IVPUSH Q4H PRN PRN Reason: NAUSEA AND/OR VOMITING Last Admin: 03/17/19 00:45 Dose: 4 mg - Objective Vital Signs: Vital Signs Temperature 98.3 F 03/18/19 07:39 Pulse Rate 79 03/18/19 07:39 Respiratory Rate 18 03/18/19 07:39 Blood Pressure 118/71 03/18/19 07:39 O2 Sat by Pulse Oximetry (%) 99 03/17/19 21:00 Constitutional: Yes: Well Nourished, No Distress, Calm Eyes: Yes: Conjunctiva Clear Cardiovascular: Yes: Regular Rate and Rhythm Respiratory: Yes: Regular Gastrointestinal: Yes: Normal Bowel Sounds, Soft Edema: No Wound/Incision: Yes: Clean/Dry, Well Approximated Neurological: Yes: Alert, Oriented Psychiatric: Yes: Alert, Oriented Additional Findings/Remarks: no ecchymosis noted on back/flank b/l flank tenderness improved Labs: CBC, BMP 08/19/19 07:30 Problem List - Problems (1) Abdominal pain Code(s): R10.9 - UNSPECIFIED ABDOMINAL PAIN Qualifiers: Abdominal location: generalized Qualified Code(s): R10.84 - Generalized abdominal pain (2) Post-op pain Code(s): G89.18 - OTHER ACUTE POSTPROCEDURAL PAIN (3) Retroperitoneal hematoma Code(s): K66.1 - HEMOPERITONEUM Assessment/Plan Pt stable, pain controlled with one dose of dilaudid overnight appreciate general surgery input if Hgb less than yesterday, will repeat CTA abd/pelvis will consult ID and vascular surgery if needed, will consult IR close observation serial CBCs
[2019-03-18] MEDS: DOCUSATE SODIUM 100 MG CAPSULE (FP) PO PRN (09:58)
[2019-03-18] MEDS: HYDROmorphone HCl 2 MG/ML VIAL IVPB PRN (10:47)
--- NOTE | 2019-03-18 11:19 | CONSULT ---
- Consultation REQUESTING PROVIDER: CONSULT REQUEST: We have been asked to surgically evaluate this patient for ( retroperitoneal hematoma). PCP:Roxi Smith HISTORY OF PRESENT ILLNESS: 23 y/o F w/ h/o left ovarian dermoid cyst, s/p Laparoscopic cystectomy 03/10 c/b retroperitoneal hematoma now re-admitted for pain, n/v. Pt reports she felt well on Sunday when she was discharged. reports taking 3-4 Oxycodones per day as needed for pain. Ambulated and tolerated a diet at home up until Sunday at 2AM when she woke with excruciating r lower abdominal pain. Pain persisted and pt was taken to [facility] by her family on Sunday morning. Pt had a CTA which showed a stable retroperitoneal hematoma without any active extravasation as well as some inflammatory changes. Pt was transferred to [facility] for further evaluation. Hooker Laster present for lap cystectomy on 03/10. At time of surgery both General surgery (Dr Grimaldo) and vascular surgery (Dr Brink) were consulted intra-op for evaluation of retroperitoneal hematoma. Recommendation was to observe. Patient was kept overnight, serial CBCs and vitals were checked and remained stable and the pt was d/c POD 1 with Po pain control. Of note, pt has not had BM since 03/09. PMHx: as above PSHx: as above Home Medications Medication Instructions Recorded Norgestimate-Ethinyl Estradiol 1 each PO DAILY 02/28/19 [[place]-Linyah] oxyCODONE HCL [Roxicodone -] 5 mg PO Q4H PRN 7 Days #15 tablet 03/11/19 MDD 5 Allergies Allergy/AdvReac Type Severity Reaction Status Date / Time sulfamethoxazole AdvReac "skin rash" Verified 03/15/19 22:46 REVIEW OF SYSTEMS: CONSTITUTIONAL: Absent: fever, chills, diaphoresis CARDIOVASCULAR: Absent: chest pain, syncope RESPIRATORY: Absent: cough, shortness of breath GASTROINTESTINAL: +abdominal pain, +nausea, vomiting, +constipation PHYSICAL EXAM: GENERAL: Awake, alert, and fully oriented, in no acute distress. HEAD: Normal with no signs of trauma. LUNGS: Unlabored on RA ABDOMEN: Soft, + ttp in RLQ, nondistended, normoactive bowel sounds, no guarding , no rebound. All incisions healing well. Vital Signs Temperature 98.3 F 03/18/19 07:39 Pulse Rate 79 03/18/19 07:39 Respiratory Rate 18 03/18/19 07:39 Blood Pressure 118/71 03/18/19 07:39 O2 Sat by Pulse Oximetry (%) 99 03/17/19 21:00 Lab Results WBC 4.3 K/mm3 (4.0-10.0) 03/18/19 07:45 RBC 3.96 M/mm3 (3.60-5.2) 03/18/19 07:45 Hgb 11.8 GM/dL (10.7-15.3) 03/18/19 07:45 Hct 34.9 % (32.4-45.2) D 03/18/19 07:45 MCV 88.0 fl (80-96) 03/18/19 07:45 MCHC 33.8 g/dl (32.0-36.0) 03/18/19 07:45 RDW 13.2 % (11.6-15.6) 03/18/19 07:45 Plt Count 435 K/MM3 (134-434) H D 03/18/19 07:45 Sodium 140 mmol/L (136-145) 03/17/19 07:30 Potassium 4.1 mmol/L (3.5-5.1) 03/17/19 07:30 Chloride 109 mmol/L (98-107) H 03/17/19 07:30 Carbon Dioxide 27 mmol/L (21-32) 03/17/19 07:30 Anion Gap 5 MMOL/L (8-16) L 03/17/19 07:30 BUN 4.7 mg/dL (7-18) L 03/17/19 07:30 Creatinine 0.6 mg/dL (0.55-1.3) 03/17/19 07:30 Random Glucose 102 mg/dL (74-106) 03/17/19 07:30 Calcium 8.4 mg/dL (8.5-10.1) L 03/17/19 07:30 A/P: 23 y/o F w/ h/o left ovarian dermoid cyst, s/p Laparoscopic cystectomy c/b retroperitoneal hematoma now re-admitted for pain, n/v. H./H stable from d/c on 03/10, CT at [facility] without evidence of active extravasation VSS Pain improved, pt tolerating PO intake with no n/v x 24 hrs -No acute vascular intervention at this time -Continue to monitor VS and follow clinically -No indication to repeat CTA at this time Jhonny attending Dr Brink
--- NOTE | 2019-03-18 14:49 | PN ---
Progress Note (short form) - Note Progress Note: ID CONSULT DICTATED POST OP RP HEMATOMA OBSERVE OFF ANTIBIOTICS
[2019-03-18] MEDS ORDERED: ACETAMINOPHEN 325 MG TABLET (FP) PO PRN (15:44)
--- NOTE | 2019-03-18 17:14 | CONS ---
DATE OF CONSULTATION: DATE OF DICTATION: 03/18/2019 INFECTIOUS DISEASE CONSULTATION HISTORY OF PRESENT ILLNESS: The patient is a 23-year-old female evaluated for postoperative hematoma. The patient underwent a laparoscopic left ovarian cystectomy on March 10, 2019. She was discharged from [facility] on March 11, 2019. Postoperatively she developed abdominal pain which became moderately severe. She presented to [facility] emergency room where a CAT scan of the abdomen and pelvis was performed that revealed a retroperitoneal hematoma. She was transferred to [facility] for further evaluation and treatment. She was empirically treated with cephazolin for possible infection. She is presently hospital day number 3, and she has remained afebrile with a normal white blood cell count. At the present time she reports improvement in her abdominal pain. She denies any vomiting. She had a bowel movement today. No complaints of fever or chills. PAST MEDICAL HISTORY: Negative. ALLERGIES: SULFA. LABORATORY DATA: White count 4.3, hematocrit 34.9, platelet count 435, creatinine 0.6. Urinalysis negative. Urine culture negative. PHYSICAL EXAMINATION: General: On exam, she is supine in bed. She is resting comfortably in no acute distress. Not acutely toxic appearing. Vital signs: Temperature 98.3, blood pressure 118/71, pulse 79 regular, respirations 18 per minute. HEENT: Sclerae anicteric. Cardiovascular: Heart sounds S1, S2. Lungs: Clear. Abdomen: Soft. Mild right-sided incisional tenderness. No mass, rebound, or rigidity. Surgical wounds present on either side of the lower abdomen appear to be healing well without evidence of infection. Extremities: Negative for edema. Negative Homans sign. IMPRESSION: 1. Postoperative retroperitoneal hematoma. 2. Postoperative day number 10 laparoscopic left ovarian cystectomy. Patient appears clinically stable. No evidence of systemic infection. Doubt infected hematoma. Would observe off antibiotic therapy. Follow up imaging studies per surgery. Obtain cultures should patient become febrile or develop a leukocytosis. MELANIE ROLLINS M.D. [id number]
[2019-03-18] MEDS: HYDROmorphone HCL 2 MG TABLET PO PRN (19:21)
[2019-03-19] MEDS: HYDROmorphone HCL 2 MG TABLET PO PRN (09:04)
[2019-03-19 09:21] LABS: BASO % 0.4 % (0-2.0); EOS % 0.2 % (0-4.5); HEMATOCRIT 36.9 % (32.4-45.2); HEMOGLOBIN 12.5 GM/dL (10.7-15.3); LYMPH % 22.3 % (8-40); MCH 30.1 pg (25.7-33.7); MEAN CELL VOLUME 88.5 fl (80-96); MEAN PLT VOLUME 7.1 fl (7.5-11.1); MONO % 10.9 % (3.8-10.2); NEUT % 66.2 % (42.8-82.8); PLATELET COUNT 489 K/MM3 (134-434); RBC 4.17 M/mm3 (3.60-5.2); RDW 13.1 % (11.6-15.6); WHITE BLOOD COUNT 7.2 K/mm3 (4.0-10.0)
--- NOTE | 2019-03-19 11:24 | PN ---
Progress Note, Physician History of Present Illness: Pt feeling much improved. Tolerated regular diet yesterday and this a.m. States oral Dilaudid and PO Tylenol helps with pain control. She states she can walk much easier, more mobile independently. Hgb improving - is 12.5 today , increased from 10.8 upon admission. Afebrile, no leukocytosis. Pt desires to go home. - Current Medication List Current Medications: Active Medications Acetaminophen (Tylenol -) 650 mg PO Q4H PRN PRN Reason: FEVER Last Admin: 03/18/19 23:31 Dose: 650 mg Bisacodyl (Dulcolax Suppository -) 10 mg DE DAILY PRN PRN Reason: CONSTIPATION Last Admin: 03/18/19 10:20 Dose: 10 mg Docusate Sodium (Colace -) 100 mg PO Q8H PRN PRN Reason: CONSTIPATION Last Admin: 03/18/19 09:58 Dose: 100 mg Hydromorphone HCl (Dilaudid -) 2 mg PO Q6H PRN PRN Reason: PAIN LEVEL 6-10 Last Admin: 03/19/19 09:04 Dose: 2 mg - Objective Vital Signs: Vital Signs Temperature 98.0 F 03/18/19 14:12 Pulse Rate 84 03/18/19 14:12 Respiratory Rate 18 03/18/19 07:39 Blood Pressure 117/80 03/18/19 14:12 O2 Sat by Pulse Oximetry (%) 99 03/18/19 21:00 Constitutional: Yes: Well Nourished, No Distress, Calm HENT: Yes: Atraumatic, Normocephalic Cardiovascular: Yes: Regular Rate and Rhythm Respiratory: Yes: CTA Bilaterally Gastrointestinal: Yes: Normal Bowel Sounds, Soft Extremities: Yes: WNL Edema: No Wound/Incision: Yes: Clean/Dry, Well Approximated Neurological: Yes: Alert, Oriented Psychiatric: Yes: Alert, Oriented Additional Findings/Remarks: lower right back tenderness upon palpation, no ecchymosis, no left back pain, b/ l CVA tenderness improved Labs: CBC, BMP 03/19/19 08:20 03/17/19 07:30 - ....Imaging Cat Scan: Report Reviewed EKG: Report Reviewed Problem List - Problems (1) Abdominal pain Code(s): R10.9 - UNSPECIFIED ABDOMINAL PAIN Qualifiers: Abdominal location: generalized Qualified Code(s): R10.84 - Generalized abdominal pain (2) Post-op pain Code(s): G89.18 - OTHER ACUTE POSTPROCEDURAL PAIN (3) Retroperitoneal hematoma Code(s): K66.1 - HEMOPERITONEUM Assessment/Plan Pt stable, pain controlled with oral medications at this time appreciate general surgery, vascular surgery and infectious disease input Hgb improving/stable Had BM Tolerating diet, ambulating will discharge home today with strict restrictions f/u within 1 week in office to get clearance before returning to work
--- NOTE | 2019-03-19 11:31 | DS ---
Physical Examination Vital Signs: Vital Signs Temperature 98.0 F 03/18/19 14:12 Pulse Rate 84 03/18/19 14:12 Respiratory Rate 18 03/18/19 07:39 Blood Pressure 117/80 03/18/19 14:12 O2 Sat by Pulse Oximetry (%) 99 03/18/19 21:00 Constitutional: Yes: Well Nourished, No Distress Labs: CBC, BMP 03/19/19 08:20 03/17/19 07:30 Discharge Summary Reason For Visit: POSTOPERATIVE PAIN Current Active Problems Abdominal pain (Acute) Constipation due to opioid therapy (Acute) Post-op pain (Acute) Retroperitoneal hematoma (Acute) Right lateral abdominal pain (Acute) Hospital Course: Pt admitted on 03/16/19 with severe pain s/p laparoscopic ovarian cystectomy on . CT at outside institution confirmed retroperitoneal hematoma which was known during the initial procedure - this CT did not show active extravasation. Pt was admitted for pain control/observation. General surgery/Vascular surgery and ID were consulted throughout admission. Pt had complained of constipation as well upon admission (no BM since 03/09/19) but then had BM on after colace/dulcolax. On hospital day 4 patient was found to have a stable hemoglobin, normal bowel function, was voiding normally, tolerating regular diet and was doing well with PO pain meds. Pt was discharged home in stable condition to follow up closely as outpatient. Pt aware it will take weeks for hematoma to absorb and may have on and off pain for many weeks. Pt aware to avoid NSAIDS until cleared, and no returning to work until cleared by physician. Condition: Stable - Instructions Diet, Activity, Other Instructions: Discharge Instructions Post Anesthesia / IV Sedation Do not drive a motor vehicle or drink alcohol until cleared by your doctor. Physical Activity Resume your normal everyday activity slowly as tolerated. No heavy lifting or exercise until seen by your surgeon. You may walk unlimited amounts and climb stairs. No driving until cleared by your doctor. No sexual activity as instructed by your doctor. No returning to work until cleared by your doctor. Wound Care You may shower daily. If you have clear glue covering your incision, you may shower in 24 hours. It will peel off in the next 1 to 2 weeks. Diet There are no dietary restrictions. Eat healthy, high fiber foods. Drink 6 to 8 glasses of liquid each day. This will assist in keeping your bowels regular. Pain Management You may take Tylenol (Acetaminophen) or the prescribed narcotic for pain. Prescription medication, if ordered, should be taken as prescribed for moderate to severe pain. AVOID ALEVE/MOTRIN/IBUPROFEN until cleared by your doctor. CALL DR. GEORGE FOR ANY OF THE FOLLOWING: * Severe pain not relieved by medication * Fever of 101 or higher * Excessive bleeding or drainage on dressing * Inability to urinate Call the office at [phone] for an appointment within 7 days Referrals: Roxi Smith DO [Staff Physician] - Disposition: HOME - Home Medications Comprehensive Discharge Medication List: Ambulatory Orders Norgestimate-Ethinyl Estradiol [Eddy-Linyah] 1 each PO DAILY 02/28/19 oxyCODONE HCL [Roxicodone -] 5 mg PO Q4H PRN 7 Days #15 tablet MDD 5 03/11/19 Docusate Sodium [Colace] 100 mg PO BID #60 capsule 03/19/19
[2019-03-19 12:07] VITALS: BP 118/72; PULSE 83; TEMP 97.6
== END 2019-03-19 17:00 | disposition home or self-care (01) | DRG 861 ==
LOC: JER 22:28 → JERBED 23:36 → J6S 03-16 02:04
PROVIDERS: ADMIT Obstetrics & Gynecology; ATTEND Obstetrics & Gynecology
DX: G89.18 Other acute postprocedural pain (principal); K66.1 Hemoperitoneum; R10.9 Unspecified abdominal pain; F41.9 Anxiety disorder, unspecified; F32.9 Major depressive disorder, single episode, unspecified; F12.10 Cannabis abuse, uncomplicated; F10.10 Alcohol abuse, uncomplicated; Z87.891 Personal history of nicotine dependence; K59.03 Drug induced constipation
CPT/HCPCS: 36415; 71045-TC-FY; 74019-TC-FY; 80048; 80053; 81003; 83690; 85025; 87086; 93005; 93010; 99283-25; J0131